=== PATIENT | female | born 1990 | race Caucasian/White ===

== ENCOUNTER 2018-12-20 12:24 | Inpatient (IN) | payer OTHER ==
[~2018-12-20] VITALS: Ht 149.9 cm; Wt 72.5 kg
[2018-12-20 12:58] VITALS: Ht 149.9 cm; Wt 72.5 kg
[2018-12-20] MEDS ORDERED: PNV11TAB PO (12:58)
[2018-12-20 12:59] VITALS: BP 100/63; PULSE 81; RESP 19
[2018-12-20] MEDS ORDERED: LACTATED RINGER'S 1,000 ML IV ONE (13:00)
[2018-12-20] MEDS ORDERED: TERBUTALINE 1 MG/ML INJ SC ONE ×2 (13:00→15:00)
[2018-12-20] MEDS ORDERED: TERBUTALINE 1 ML ONE (13:14)
[2018-12-20] MEDS: LACTATED RINGER'S 1,000 ML IV SCH ×2 (13:53→18:32)
--- NOTE | 2018-12-20 15:58 | TRIAGE ---
OB Triage Datetime Report Generated by CPN: 12/20/2018 15:58 Datetime: 12/20/2018 15:00 Stage of : OB Triage Maternal Assessment Level of Consciousness: Keenly Alert, Responsive Labor Evaluation Frequency: 1-4 Monitor Mode: External Duration (sec)2399: 30-90 Quality: Mild Resting Tone [place]: Relaxed Heart Rate FHR Baseline Rate: 135 Monitor Mode: External US Variability: Moderate 6-25 bpm Accelerations: 15X15 Decelerations: None Category: Category I Pain Assessment Pain Scale: 0 Pain Goal: 3 Membrane Status: Intact Vaginal Bleeding: None Datetime: 12/20/2018 14:00 Stage of : OB Triage Maternal Assessment Level of Consciousness: Keenly Alert, Responsive Labor Evaluation Frequency: 1-4 Monitor Mode: External Duration (sec)2399: 40-120 Quality: Mild Resting Tone [place]: Relaxed Heart Rate FHR Baseline Rate: 135 Monitor Mode: External US Variability: Moderate 6-25 bpm Accelerations: 15X15 Decelerations: None Category: Category I Pain Assessment Pain Scale: 0 Pain Goal: 3 Membrane Status: Intact Vaginal Bleeding: None Datetime: 12/20/2018 12:54 Assessment Type: Triage Maternal Assessment Level of Consciousness: Keenly Alert, Responsive DTR's/Clonus: DTRs 2+; No Clonus Headache: Denies Blurred Vision: No Respiratory Effort: Unlabored; Regular Rhythm; Equal Expansion Breath Sounds, Left: Clear and Equal Breath Sounds, Right: Clear and Equal Nausea/Vomiting: Denies RUQ Epigastric Pain: Denies Lower Extremities Edema: None Degree: None Upper Extremities Edema: None Degree: None Facial Edema: None Fall Risk Assessment History of Falling: (0) No Secondary Diagnosis: (0) No Ambulatory Aid: (0) Bedrest/Nurse Assist IV Therapy: (0) No Gait: (0) Normal/Bedrest/Immobile Mental Status: (0) Oriented to Own Ability Fall Score: 0 Fall Risk Score Definition: No Risk: No action required Labor Evaluation Frequency: 2 Monitor Mode: External Duration (sec)2399: 60-110 Quality: Mild Pattern: Normal: <= 5 Contractions in 10 Minutes Resting Tone [place]: Relaxed Heart Rate FHR Baseline Rate: 135 Monitor Mode: External US Variability: Moderate 6-25 bpm Accelerations: 15X15 Decelerations: None Category: Category I Datetime: 12/20/2018 12:52 Time of Arrival: 12/20/2018 12:10 EGA: 36.1 Arrived By: Ambulatory Arrived From: Other Unit in Hospital Chief Complaint: PT. SENT FROM NST FOR UC'S Movement: Present Contractions: Denies/Absent Rupture of Membranes: Denies Vaginal Bleeding: None Vaginal Discharge: Denies Recent Sexual Intercouse: Denies Abdominal Trauma: Not Applicable Patient Complaints: Contractions; Cramping Time Provider Notified: 12/20/2018 13:10 Provider Notified: ABUSLEME Initial Plan: NST/iv hydration/TERB X 2 Datetime: 12/20/2018 12:49 Vaginal Exam Dilatation (cms): 0.0 Effacement (%): 0 Station: -3 Exam By: Marisol RIVERA
[2018-12-20] MEDS ORDERED: MISOPROSTOL 200 MCG TAB PR PRN ×3 (17:00→21:30)
[2018-12-20] MEDS ORDERED: CEFAZOLIN 2 GM/50 ML (PMX) 50 ML IVPB ONE (17:00)
[2018-12-20] MEDS ORDERED: METHYLERGONOVINE 0.2 MG INJ IM PRN ×3 (17:00→21:30)
[2018-12-20] MEDS ORDERED: OXYTOCIN 30 UNITS/LR 500 ML IV PRN ×3 (17:00→21:30)
[2018-12-20] MEDS ORDERED: OXYTOCIN 30 UNITS/LR 500 ML IV SCH ×5 (17:00→21:30)
[2018-12-20] MEDS ORDERED: CARBOPROST 250 MCG INJ IM PRN ×3 (17:00→21:30)
[2018-12-20] MEDS ORDERED: ONDANSETRON 4 MG INJ IV STA (18:14)
[2018-12-20] MEDS ORDERED: CITRIC ACID/NA CITRATE 30 ML CUP PO ONE (18:30)
[2018-12-20] MEDS ORDERED: OXYTOCIN 30 UNITS/LR 500 ML BAG IV ONE (20:00)
[2018-12-20] MEDS: DEXTROSE 5%-LR 1,000 ML IV SCH (20:11)
[2018-12-20] MEDS ORDERED: morphine SULFATE/PF (10 MG/10 ML) INJ ONE (20:46)
[2018-12-20] MEDS ORDERED: OXYTOCIN 10 UNIT INJ ONE (20:46)
[2018-12-20] MEDS ORDERED: PHENYLephrine (100 MCG/ML) 10ML SYG ONE ×2 (20:46→21:45)
--- NOTE | 2018-12-20 21:05 | PREAC ---
Date/Time of Note Date/Time of Note DATE: 12/20/18 TIME: 21:04 Anesthesia Eval and Record Evaluation Time Pre-Procedure Interview DATE: 12/20/18 TIME: 21:04 Age 28 Sex female NPO: 8 hrs Preoperative diagnosis Repeat Planned procedure Past Medical History Past Medical History: Includes Heme: Anemia : : (4), Para: (2), Gestational age: (36), Gestational diabetes Surgery & Anesthesia Issues No known issue Meds Anticoagulation: No Beta Maribell within 24 hr: No Reason Beta Maribell not given: Pt. not on B-Maribell Reported Medications [id number] ( 19) 1 Each Tablet, 1 TAB PO DAILY, TAB 12/20/18 Current Medications Lactated Ringer's 1,000 ml @ 125 mls/hr Q8H IV Last administered on 12/20/18at 13:53; Admin Dose 125 MLS/HR; Start 12/20/18 at 13:00 Lactated Ringer's 1,000 ml @ 125 mls/hr Q8H IV Last administered on 12/20/18at 18:32; Admin Dose 125 MLS/HR; Start 12/20/18 at 16:44 Dextrose/Lactated Ringer's 1,000 ml @ 125 mls/hr Q8H IV ; Start 12/20/18 at 16:44 Oxytocin/Lactated Ringer's 500 ml @ 500 mls/hr ONCE POST IV ; Start 12/20/18 at 17:00 Oxytocin/Lactated Ringer's 500 ml @ 125 mls/hr POST IV ; Start 12/20/18 at 17:00 Oxytocin/Lactated Ringer's 500 ml @ 0 mls/hr ONCE PRN IV .VAGINAL BLEEDING; Start 12/20/18 at 17:00 Methylergonovine Maleate (Methergine) 0.2 mg ONCE PRN IM .VAGINAL BLEEDING; Start 12/20/18 at 17:00 Carboprost Tromethamine (Hemabate) 250 mcg ONCE PRN IM .VAGINAL BLEEDING; Start 12/20/18 at 17:00 Misoprostol (Cytotec) 1,000 mcg ONCE PRN SD .VAGINAL BLEEDING; Start 12/20/18 at 17:00 Oxytocin/Lactated Ringer's 500 ml @ 125 mls/hr POST IV ; Start 12/20/18 at 17:00 Meds reviewed: Yes Allergies Coded Allergies: No Known Allergy (Unverified , 12/20/18) Allergies Reviewed: Yes Labs/Studies Labs Reviewed: Reviewed by anesthesiologist Result Diagram: 12/20/18 1644 12/20/18 1644 Laboratory Tests 12/20/18 16:44 Blood Bank Test 12/20/18 16:44 Antibody Screen NEGATIVE Blood Type B POSITIVE Rh Immune Globulin Candidate NO test: Positive Studies: ECG (n/a), CXR (n/a) Pre-procedure Exam Last vitals Vital Signs Date Temp Pulse Resp B/P (MAP) Pulse Ox O2 O2 Flow FiO2 Time Delivery Rate 12/20/18 98.3 81 19 100/63 Room Air 12:59 (75) Airway: Adequate mouth opening, Adequate thyromental dist Mallampati: Mallampati II Teeth: Normal Lung: Normal Heart: Normal ASA Physical Status ASA physical status: 2 Emergency: None Planned Anesthetic Neuraxial: Spinal Planned Pain Management Sub-arachniod narcotics, Parenteral pain med Pre-operative Attestations Prior to commencing anesthesia and surgery, the patient was re-evaluated, there was verification of: *The patient's identity *The results of appropriate recent lab work and preoperative vital signs *The above evaluation not changing prior to induction *Anesthetic plan, risk benefits, alternative and complications discussed with patient/family; questions answered; patient/family understands, accepts and wishes to proceed. TRINA LIN MD Dec 20, 2018 21:05
[2018-12-20] MEDS ORDERED: LACTATED RINGER'S 1,000 ML IV SCH (21:10)
--- NOTE | 2018-12-20 21:24 | SIPON ---
Date/Time of Note Date/Time of Note DATE: 12/20/18 TIME: 21:22 Operative Report Preoperative Diagnosis 36.1 weeks . Active labor Previous 2 section GDM diet control Postoperative Diagnosis Same Operation/Procedure Performed Repeat low segment transverse section Surgeon see signature line desk assistant Dr Mayes Anesthesia: spinal Estimated blood loss: other Transfusion Required none Specimen Placenta Grafts/Implants none Complications none RONALD NEWELL MD Dec 20, 2018 21:24
[2018-12-20] MEDS ORDERED: NA PHOSPHATE/BIPHOS 133 ML ENEMA PR PRN (21:30)
[2018-12-20] MEDS: CEFAZOLIN 2 GM/50 ML (PMX) 50 ML IVPB SCH (21:30)
[2018-12-20] MEDS ORDERED: METHYLERGONOVINE 0.2 MG TAB PO PRN (21:30)
[2018-12-20] MEDS ORDERED: HYDROCODONE/APAP (5/325) TAB PO PRN ×2 (21:30→22:00)
[2018-12-20] MEDS ORDERED: CEFAZOLIN 2 GM/50 ML (PMX) 50 ML IVPB SCH (21:30)
[2018-12-20] MEDS ORDERED: DEXAMETHASONE 4 MG/ML 1 ML INJ ONE (21:38)
[2018-12-20] MEDS ORDERED: METOCLOPRAMIDE 10 MG INJ ONE (21:38)
[2018-12-20] MEDS ORDERED: KETOROLAC 30 MG INJ ONE (21:38)
[2018-12-20] MEDS ORDERED: ONDANSETRON 4 MG INJ ONE (21:38)
[2018-12-20] MEDS ORDERED: MEPERIDINE 100 MG INJ ONE (21:44)
[2018-12-20] MEDS ORDERED: DIPHENHYDRAMINE 50 MG INJ IV PRN ×2 (22:00)
[2018-12-20] MEDS ORDERED: NALBUPHINE HCL (10 MG/1 ML) INJ IV PRN (22:00)
[2018-12-20] MEDS ORDERED: HYDROmorphONE 0.5 MG/0.5 ML SYG IV PRN ×2 (22:00)
[2018-12-20] MEDS ORDERED: HYDROmorphONE 1 MG/5 ML IV SYRINGE IV PRN ×2 (22:00)
[2018-12-20] MEDS ORDERED: EPHEDrine 25 MG/5 ML SYG IV PRN (22:00)
[2018-12-20] MEDS ORDERED: ACETAMINOPHEN 500 MG TAB PO PRN (22:00)
[2018-12-20] MEDS ORDERED: FENTAnyl 50 MCG/ML VIAL IV PRN ×2 (22:00)
[2018-12-20] MEDS ORDERED: KETOROLAC 30 MG INJ IV PRN (22:00)
[2018-12-20] MEDS ORDERED: METOCLOPRAMIDE 10 MG INJ IV PRN (22:00)
[2018-12-20] MEDS ORDERED: LABETALOL HCL 20MG INJ IV PRN (22:00)
[2018-12-20] MEDS ORDERED: OXYCODONE/ACETAMINOPHEN (5/325) TAB PO PRN (22:00)
[2018-12-20] MEDS ORDERED: MEPERIDINE 25 MG INJ IV PRN (22:00)
[2018-12-20] MEDS ORDERED: ONDANSETRON 4 MG INJ IV PRN ×2 (22:00)
[2018-12-20] MEDS ORDERED: morphine 2 MG INJ IV PRN ×2 (22:00)
[2018-12-20] MEDS ORDERED: NALOXONE (0.4 MG/ML) INJ IV PRN (22:00)
--- NOTE | 2018-12-20 22:12 | PREOPHP ---
DATE OF ADMISSION: 12/20/2018 HISTORY OF PRESENT ILLNESS: This is a 28-year-old female, 4, para 2, with 2 previous cesarea n sections and EDC of 01/17/2019, last period of 04/11/2018. This patient had seen me since 21 weeks of her , from which time we have followed her and we found that she is a borderline diabeti c with a history of 2 previous sections and for a scheduled for 01/10/2019. This patient today has come in for evaluation with NST and BPP and she was found to be at 36 weeks and 1 d ay with normal blood pressures and with contractions. NST and BPP were normal, but she was contracti ng very frequently with mild pain. She was given terbutaline twice and IV fluids and she is still co ntracting where the pain was getting worse and because of this, she was scheduled for a repeat aldo an section due to labor and gestational diabetes. PAST MEDICAL HISTORY: Unremarkable. FAMILY HISTORY: Her grandfather had thyroid; otherwise, family history is also noncontributory. ALLERGIES: SHE DOES NOT HAVE ANY ALLERGIES. SOCIAL HISTORY: She does not drink or smoke. The only pertinent findings in her past is her 2 C-sec tions. No history of drugs, smoking or drinking. PHYSICAL EXAMINATION: VITAL SIGNS: The patient is 4 feet 11 inches and her starting weight was 146. Right now, her weight is 161. Her blood pressures have been always normal and her blood sugars had been monitored just re cently and they were normal. VITAL SIGNS: Normal pulses and normal respiration. HEAD AND NECK: Normal; otherwise, noncontributory. CHEST: Clear. HEART: Normal sinus rhythm. LUNGS: Clear. BREASTS: Soft and nontender. No masses. ABDOMEN: Soft. Uterus at 36 weeks. heart tones are normal. PELVIC: With a closed cervix and with a presentation that is high in the pelvis and membranes intact . EXTREMITIES: Normal with normal pulses, normal reflexes and no edema. DIAGNOSES: 1. A 36.1 weeks , previous sections x2, active labor. 2. Gestational diabetes, diet control. PLAN: She is undergoing a repeat section due to active labor. The patient has been advised of the possible risks and possible complications of the procedure with her alternatives and options. Written information was provided. She had no more questions and agreed to go ahead with the proced ure with full understanding and no more questions. Dictated By: RONALD WATSON/NTS Conf#: [id number] DID#: [id number]
--- NOTE | 2018-12-20 23:03 | PAC ---
Date/Time of Note Date/Time of Note DATE: 12/20/18 TIME: 23:03 Post-Anesthesia Notes Post-Anesthesia Note Last documented vital signs Vital Signs Date Temp Pulse Resp B/P (MAP) Pulse Ox O2 O2 Flow FiO2 Time Delivery Rate 12/20/18 98.3 81 19 100/63 98 Room Air 22:59 (75) Activity: WNL Respiratory function: WNL Cardiovascular function: WNL Mental status: Baseline Pain reasonably controlled: Yes Hydration appropriate: Yes Nausea/Vomiting absent: Yes TRINA LIN MD Dec 20, 2018 23:03
[2018-12-21] VITALS (7 sets, daily range): BP systolic 85–109; BP diastolic 46–61; PULSE 58–75; RESP 18–19
[2018-12-21] MEDS: DEXTROSE 5%-LR 1,000 ML IV SCH (00:44)
[2018-12-21] MEDS: LACTATED RINGER'S 1,000 ML IV SCH ×5 (00:44→21:00)
[2018-12-21] MEDS: KETOROLAC 30 MG INJ IV SCH ×5 (00:52→21:50)
--- NOTE | 2018-12-21 02:51 | OPR ---
DATE OF OPERATION: 12/20/2018 PROCEDURE: Repeat low segment transverse section. PREOPERATIVE DIAGNOSES: A 36.1 weeks in active labor, previous section x2 and GDM diet controlled. POSTOPERATIVE DIAGNOSES: A 36.1 weeks in active labor, previous section x2 and GD M diet controlled, baby boy, 9. SURGEON: Ronald Morrissey MD. BIOLOGY MANAGER: Dr. Mojica. ANESTHESIA: Dr. with spinal. PROCEDURE: The patient was given a spinal anesthesia, placed in the supine position. A Muniz cathet er was placed in the bladder. A transverse incision was made after the abdomen was prepped and drape d over the previous old incisions and the abdomen was opened in layers without difficulties. The abd ominal cavity was reached. The lower uterine segment was identified and the bladder flap was made. The uterus was opened in the midline with a scalpel and the incision was increased laterally on eithe r side for about 3 inches. The baby's head was delivered. There was a cord around the neck that was passed through, and the baby's cord was clamped and cut. The baby was delivered without difficultie s and he was transferred to the backbreaker team. There was a delayed cord clamping for 1/2 minute s. The placenta was removed after the cord blood was obtained, and the uterus was swabbed out and a ring forceps was placed in the cervix for dilatation. The uterus contracted. The tubes and ovaries were normal. The uterus was closed in 2 layers using PDS looped suture for the first layer, and the second layer was imbedding the first layer with the same PDS looped suture. Hemostasis was good. Th e PDS MH 0 chromic were used for single areas that were bleeding. The hemostasis was achieved. The abdominal cavity was cleaned out and a piece of Surgicel was applied on the area of the surgery. The peritoneum was now closed with a 2-0 Vicryl suture. The fascia was closed with an 0 PDS looped sutu re, 2-0 Vicryl for the subcutaneous tissue, 3-0 Monocryl subcuticular to the skin and Dermabond and S carlos-Strips. The patient tolerated the procedure well and left the OR awake and stable. Sponge coun ts and instrument counts were correct. Intravenous antibiotics were given for prophylaxis. Blood lo ss was approximately 600 mL and the urine was clear at the end of the procedure. Dictated By: RONALD WATSON/CRISTHIAN Conf#: [id number] DID#: [id number]
[2018-12-21] MEDS: CEFAZOLIN 2 GM/50 ML (PMX) 50 ML IVPB SCH ×2 (06:08→13:28)
[2018-12-21] MEDS: SENNA/DOCUSATE NA (8.6MG/50MG) TAB PO SCH ×2 (09:25→21:02)
[2018-12-21] MEDS: LANOLIN HPA 1 PKT TOP PRN ×2 (09:26→19:12)
--- NOTE | 2018-12-21 11:30 | PN ---
Date/Time of Note Date/Time of Note DATE: 12/21/18 TIME: 11:28 Assessment/Plan Lines/Catheters IV Catheter Type (from Nrsg): Peripheral IV Subjective 24 Hr Interval Summary Day 1 post . Stable. Feels good not up yet since his surgery was just last night. Encourage ambulation later today. Vitals are stable Incision dry, uterus contracted. Lochia normal Constitutional: no complaints Pain Control: mild Detailed Summary Eyes: no complaints ENT: no complaints Respiratory: no complaints Cardiovascular: no complaints Gastrointestinal: no complaints Genitourinary: no complaints Musculoskeletal: no complaints Skin: no complaints Neurologic: no complaints Endocrine: no complaints Lymphatic: no complaints Psychological: no complaints, nl mood/affect Immunologic: no complaints Exam/Review of Systems Vital Signs Vitals Vital Signs Date Temp Pulse Resp B/P (MAP) Pulse Ox O2 O2 Flow FiO2 Time Delivery Rate 12/21/18 97.9 19 97/56 (70) Room Air 08:00 12/21/18 75 95 05:00 Intake and Output 12/20/18 12/20/18 12/21/18 1515:00 23:00 07:00 IntakeIntake Total 450 ml 300 ml OutputOutput Total 3793 ml BalanceBalance 450 ml -3493 ml Exam Constitutional: alert, oriented, well developed Psych: no complaints, nl mood/affect Head: normocephalic, atraumatic Eyes: nl conjunctiva, EOMI, nl lids, nl sclera ENMT: nl external ears & nose, nl lips & teeth, nl nasal mucosa & septum, mucosa pink and moist Neck: supple, non-tender Respiratory: clear to auscultation, normal air movement Cardiovascular: regular rate and rhythm, nl pulses Gastrointestinal: soft, nl liver, spleen, non-tender Musculoskeletal: nl extremities to inspection, nl gait and stance Extremities: normal pulses Neurological: ADULT REMEDIAL EDUCATION INSTRUCTOR II-XII intact, nl mental status, nl speech, nl strength Skin: nl turgor, rash or lesions Lymph: nl lymph nodes Results Result Diagram: 12/21/18 0552 12/20/18 1644 RONALD NEWELL MD Dec 21, 2018 11:30
[2018-12-22 04:00] VITALS: BP 85/44; PULSE 62; RESP 19
[2018-12-22] MEDS: KETOROLAC 30 MG INJ IV SCH ×2 (04:00→10:00)
[2018-12-22] MEDS: LACTATED RINGER'S 1,000 ML IV SCH (04:28)
[2018-12-22] MEDS: HYDROCODONE/APAP (5/325) TAB PO PRN ×2 (05:45→22:53)
[2018-12-22 08:00] VITALS: BP 94/59; PULSE 58; RESP 18
[2018-12-22] MEDS: SENNA/DOCUSATE NA (8.6MG/50MG) TAB PO SCH ×2 (08:05→22:48)
[2018-12-22] MEDS: IBUPROFEN 800 MG TAB PO SCH ×2 (11:04→17:54)
[2018-12-22] MEDS ORDERED: BISACODYL (EC) 5 MG TAB PO ONE (14:00)
--- NOTE | 2018-12-22 14:03 | PN ---
Date/Time of Note Date/Time of Note DATE: 12/22/18 TIME: 14:02 Assessment/Plan Lines/Catheters IV Catheter Type (from Nrsg): Peripheral IV Subjective 24 Hr Interval Summary Day 2 post Afebrile. Feels good, ambulatory. Voiding well but not passing gases Pain is controlled with medication. Incision healing good Possible discharge tomorrow Constitutional: no complaints, improved, ambulates, BM, flatus, urine output Feeding: advancing diet Pain Control: mild Detailed Summary Eyes: no complaints ENT: no complaints Respiratory: no complaints Cardiovascular: no complaints Gastrointestinal: no complaints Genitourinary: no complaints Musculoskeletal: no complaints Skin: no complaints Neurologic: no complaints Endocrine: no complaints Lymphatic: no complaints Psychological: no complaints, nl mood/affect Immunologic: no complaints Exam/Review of Systems Vital Signs Vitals Vital Signs Date Temp Pulse Resp B/P (MAP) Pulse Ox O2 O2 Flow FiO2 Time Delivery Rate 12/22/18 97.7 58 18 94/59 (71) Room Air 08:00 12/21/18 96 20:00 Intake and Output 12/21/18 12/21/18 12/22/18 1515:00 23:00 07:00 IntakeIntake Total 1075 ml 1300 ml 200 ml OutputOutput Total 325 ml 1600 ml 800 ml BalanceBalance 750 ml -300 ml -600 ml Exam Constitutional: alert, oriented, well developed Psych: no complaints, nl mood/affect Head: normocephalic, atraumatic Eyes: nl conjunctiva, EOMI, nl lids, nl sclera ENMT: nl external ears & nose, nl lips & teeth, nl nasal mucosa & septum, mucosa pink and moist Neck: supple, non-tender Respiratory: clear to auscultation, normal air movement Cardiovascular: regular rate and rhythm, nl pulses Gastrointestinal: soft, nl liver, spleen, non-tender Musculoskeletal: nl extremities to inspection, nl gait and stance Extremities: normal pulses Neurological: SLITTING MACHINE FEEDER II-XII intact, nl mental status, nl speech, nl strength Skin: nl turgor, rash or lesions Lymph: nl lymph nodes Results Result Diagram: 12/21/18 0552 12/20/18 1644 RONALD NEWELL MD Dec 22, 2018 14:03
[2018-12-22 16:00] VITALS: BP 106/58; PULSE 73; RESP 18
[2018-12-22 20:00] VITALS: BP 109/61; PULSE 75; RESP 18
[2018-12-23 03:42] VITALS: BP 100/70; PULSE 66; RESP 17
[2018-12-23] MEDS: IBUPROFEN 800 MG TAB PO SCH ×2 (07:26→12:24)
[2018-12-23 08:15] VITALS: BP 111/69; PULSE 64; RESP 18
[2018-12-23] MEDS ORDERED: DIPHTH/TET/ACEL PERTUSS (ADULT) 0.5 ML VIAL IM* ONE (09:00)
[2018-12-23] MEDS ORDERED: MEASLES,MUMPS,RUBELLA VACCINE INJ SC* ONE (09:00)
[2018-12-23] MEDS: SENNA/DOCUSATE NA (8.6MG/50MG) TAB PO SCH (10:24)
--- NOTE | 2018-12-23 13:26 | PD.PPDC ---
COIN PURSE ASSEMBLER Discharge Instruction Condition [id number] Patient Condition: Jdais6x Good Diet Ddpcx8Hn Diet: Etsap3e Resume Regular Diet Activity/Restrictions Uysvq8Ct Activity: Nfrps7b Normal Activity May Shower Hwzes9Mw Restrictions: Ypkyw1n No Exercising No Lifting No Driving No Sexual Activity Nothing in the Vagina No [place] No Tampons, douche Wound/Drain Care Instructions Ohdfq1Cw Wound/Drain Care Sxrcq8l Remove Steri Strips in 1 week Instructions: Wash with soap and water Keep clean and dry Follow-up Follow-up with Physician: 1 Return to clinic for Yyxyd0Qh MATERIALS ENGINEERING TECHNICIAN Instructions: Wuvfd5a Fever greater than 101 Chills Worsening abdominal pain Excessive Vaginal Bleeding More than 2 pads per hour Unable to tolerate diet Pzcas1Am OB Instructions: Hzlcu7z Breast Tenderness Depression Blurried Vision Headache Iakfj2Ui Surgical Instructions: Xjlha1t Incisional Drainage Incisional Redness RONALD NEWELL MD Dec 23, 2018 13:26
--- NOTE | 2018-12-23 13:32 | DS ---
Date/Time of Note Date/Time of Note DATE: 12/23/18 TIME: 13:27 Discharge Summary Admission/Discharge Info Admit Date/Time Dec 20, 2018 at 16:00 Discharge Date/Time December 23, 2018 Discharge Diagnosis 36.1 weeks in labor Previous x2 GDM diet control Patient Condition: Good Procedures Repeat low segment transverse section Hx of Present Illness 28 years old female multigravida with 2 previous section and GDM diet control. Came late during this Had been catia and came to emergency room at the time of admission in labor. A repeat was a scheduled Hospital Course Patient did very well after surgery she was afebrile. She was anemic so she was given IV iron She had no feelings of shortness of breath chest pain weakness fatigue since she is chronically anemic. Today her third postoperative day she is afebrile she is tolerating diet incision is clean she is walking she is voiding well and had bowel movement. WBC and observation in daycare and she is going back and forth to the NICU to see her baby or by herself. Laboratory testing revealed anemia Asymptomatic She is going home stable in good conditions with Tylenol 3 and ibuprofen as needed Home Meds Reported Medications [id number]-HV-[id number] ( 19) 1 Each Tablet, 1 TAB PO DAILY, TAB 12/20/18 Follow-up Plan 1 week Primary Care Provider Not On Staff Doctor Time spent on discharge: < 30 minutes Pending Labs Laboratory Tests Test 12/23/18 07:50 White Blood Count 8.5 10^3/ul (4.8-10.8) Red Blood Count 3.57 10^6/ul (4.20-5.40) Hemoglobin 11.0 g/dl (12.0-16.0) Hematocrit 32.9 % (37.0-47.0) Mean Corpuscular Volume 92.2 fl (82.0-101.0) Mean Corpuscular Hemoglobin 30.8 pg (29.0-33.0) Mean Corpuscular Hemoglobin Concent 33.4 g/dl (32.0-37.0) Red Cell Distribution Width 13.2 % (11.5-14.5) Platelet Count 196 10^3/UL (140-415) Mean Platelet Volume 11.0 fl (7.4-10.4) Immature Granulocytes % 0.600 % (0.001-0.429) Neutrophils % 61.7 % (39.0-77.0) Lymphocytes % 29.3 % (15.0-51.0) Monocytes % 6.9 % (0.0-11.0) Eosinophils % 1.3 % (0.0-7.0) Basophils % 0.2 % (0.0-2.0) Nucleated Red Blood Cells % 0.0 /100WBC (0.0-0.0) Immature Granulocytes # 0.050 10^3/ul (0.0-0.031) Neutrophils # 5.2 10^3/ul (1.6-7.5) Lymphocytes # 2.5 10^3/ul (0.8-2.9) Monocytes # 0.6 10^3/ul (0.3-0.9) Eosinophils # 0.1 10^3/ul (0.0-0.5) Basophils # 0.0 10^3/ul (0.0-0.1) Nucleated Red Blood Cells # 0.0 10^3/ul (0.0-0.0) RONALD NEWELL MD Dec 23, 2018 13:32
--- NOTE | 2018-12-24 15:38 | DELSUM ---
Delivery Summary A-C Datetime Report Generated by CPN: 12/24/2018 15:38 DELIVERY PERSONNEL Radio Program Director: Tinoco, Kay MATERNAL INFORMATION Delivery Anesthesia: Spinal Medications in Delivery: SEE ANESTHESIA FLOWSHEET Delivery QBL (ml): 800 Placenta Cultured: No Maternal Complications: Other Other Maternal Complications: GDM, #3 c/section LABOR SUMMARY EDC: 01/16/2019 00:00 No. Babies in Womb: 1 Attempted: No Labor Anesthesia: None LABOR INFORMATION Reason for Induction: Not Applicable Onset of Labor: 12/20/2018 15:00 Group B Beta Strep: Negative Antibiotics # of Doses: 1 Antibiotics Time of Last Dose: 12/20/2018 21:13 Steroids Given: None Reason Steroids Not Administered: Not Applicable MEMBRANES Membranes Rupture Method: Artificial Rupture of Membranes: 12/20/2018 21:42 Length of Rupture (hr): 0.02 Amniotic Fluid Color: Clear Amniotic Fluid Amount: Moderate Amniotic Fluid Odor: None STAGES OF LABOR Stage 3 hr: 0 Stage 3 min: 0 Total Time in Labor hr: 6 Total Time in Labor min: 43 CSECTION DELIVERY Primary Indication: Repeat Elective Secondary Indication: Repeat Elective CSection Urgency: Elective CSection Incidence: Repeat Labor: Labor Elective: Elective CSection Incision: Lower Uterine Transverse BABY A INFORMATION Delivery Date/Time: 12/20/2018 21:43 Method of Delivery: Born in Route : No : N/A Forceps: N/A Vacuum Extraction: N/A Shoulder Dystocia : No SHOULDER DYSTOCIA BABY A Infant Delivery Date/Time: 12/20/2018 21:43 PRESENTATION/POSITION BABY A Presentation: Cephalic Cephalic Presentation: Vertex Breech Presentation: N/A PLACENTA INFORMATION BABY A Placenta Delivery Time : 12/20/2018 21:43 Placenta Method of Delivery: Manual Removal Placenta Status: Delivered SCORES BABY A Heart Rate 1 min: >100 bpm Resp Effort 1 min: Good Cry Reflex Irritability 1 min: Cough/Sneeze/Pulls Away Muscle Tone 1 min: Active Motion Color 1 min: Blue/Pale Resuscitation Effort 1 min: Tactile Stimulation SCORE 1 MIN: 8 Heart Rate 5 min: >100 bpm Resp Effort 5 min: Good Cry Reflex Irritability 5 min: Cough/Sneeze/Pulls Away Muscle Tone 5 min: Active Motion Color 5 min: Body [place], Extremit Blue Resuscitation Effort 5 min: Tactile Stimulation SCORE 5 MIN: 9 INFANT INFORMATION BABY A Gestational Age at Delivery: 36.1 Gestational Status: Late - 34- 36.6 Weeks Outcome : Liveborn, with signs of life Infant Condition : Stable Sex: Male IDENTIFICATION/MEDS BABY A ID Band Number: [id number] ID Band Location: Right Leg; Left Arm Sensor Applied: Yes Sensor Number: [id number] Sensor Location : Cord Clamp Vitamin K Given : Not Given Erythromycin Given: Not Given WEIGHT/LENGTH BABY A Infant Birthweight (gm): 2700 Infant Weight (lb): 5 Weight (oz): 15 Infant Length (in): 18.25 Length (cm): 46.36 CORD INFORMATION BABY A No. Cord Vessels: 3 Nuchal Cord : Around Neck x1, Loose Cord Blood Taken: Yes Infant Suction: Mouth; Nose ASSESSMENT BABY A Complications: None Physical Findings at Delivery: Within Normal Limits Respirations: Grunting; Nasal Flaring; Sternal Retractions Preventive Maintenance Coordinator/ALS Called : Yes Care By: NICU Transferred To: NICU
--- NOTE | 2018-12-25 22:43 | NSTRPT ---
NST Information Datetime Report Generated by CPN: 12/25/2018 22:43 Datetime: 12/20/2018 10:17 NST Information EGA: 36.1 Datetime: 12/20/2018 10:11 Test Number: 1 Time on Monitor: 12/20/2018 10:58 Time off Monitor: 12/20/2018 11:20 NST Duration (Min): 22 Reason for NST: Diabetes Mellitus; Gestational Hypertension Reason for NST Other: A1DM Test and Monitor Explained: Monitor Explained; Test Explained; Verbalized Understanding Pulse: 86 Resp: 18 SBP: 102 DBP: 68 Test Evaluation NST Interventions: None Patient States Movement: Present Contraction Frequency: x6/40/mild/pain level 3 FHR Baseline : 140 Variability: Moderate 6-25bpm Accelerations: 15X15 Decelerations: None FHR Category: Category I NST Results: Reactive Provider Notified: Dr Morrissey _ Dr Mariano Comments: To US VENKAT 10.9 CM cephalic FBS 87 States she has had contractions for the last 2 days. Went to a hospital for contractions at 31 wee ks _ "got a shot to stop the contractions". Spoke with Dr Morrissey who requests pt be sent to triage for assessment _ monitoring. records _ preliminary US report faxed to triage, report to Lesia Martinez RN in triage Electronically Signed By E-Signature: with User ID: [id number]
== END 2018-12-23 15:38 | disposition home or self-care (01) | DRG 788 ==
LOC: L-D 12:24 → OBT 12:24 → L-D 16:00 → PP1 12-21 01:21
PROVIDERS: ADMIT Obstetrics & Gynecology; ATTEND Obstetrics & Gynecology
PROC: 10D00Z1 Extraction of Products of Conception, Low, Open Approach (ICD-10-PCS; principal; 2018-12-20 21:30)
DX: O34.211 Maternal care for low transverse scar from previous cesarean delivery (principal); O24.420 Gestational diabetes mellitus in childbirth, diet controlled; Z3A.36 36 weeks gestation of pregnancy; Z37.0 Single live birth
CPT/HCPCS: 80053; 80076; 81001; 82962; 84560; 85025; 85384; 85610; 85730; 86592; 86850; 86900; 86901; 87340; 90715; 96360; 96361; 96372; 99464; G0463; J0690; J1100; J1885; J2175; J2210; J2274; J2370; J2405; J2590; J2765; J3105; J7120; J7121